=== PATIENT | male | born 1995 | race Two or more races ===

== ENCOUNTER 2020-06-03 18:57 | Emergency (ER) | payer OTHER ==
[~2020-06-03] VITALS: Ht 172.7 cm; Wt 88.6 kg
[2020-06-03] MEDS ORDERED: LEVE750T35 PO (19:11)
[2020-06-03 19:38] VITALS: BP 142/76
== END 2020-06-03 20:21 | disposition home or self-care (01) ==
LOC: EMS 18:57
DX: U07.1 COVID-19 (principal); F12.90 Cannabis use, unspecified, uncomplicated; Z88.6 Allergy status to analgesic agent
CPT/HCPCS: 99283; U0003

== ENCOUNTER 2020-06-16 14:11 | Emergency (ER) | payer OTHER ==
[~2020-06-16] VITALS: Ht 172.7 cm; Wt 72.7 kg
[~2020-06-16 14:11] MED LIST: LEVE750T35 PO
[2020-06-16 14:20] VITALS: BP 122/80
== END 2020-06-16 15:32 | disposition home or self-care (01) ==
LOC: EMS 14:11
DX: U07.1 COVID-19 (principal); F17.200 Nicotine dependence, unspecified, uncomplicated; F12.90 Cannabis use, unspecified, uncomplicated; Z88.6 Allergy status to analgesic agent
CPT/HCPCS: 99283; U0003